=== PATIENT | female | born 1945 | race Caucasian/White ===

== ENCOUNTER 2023-02-06 01:39 | Outpatient (CLI) | payer MEDICARE, BC | END 2023-02-06 23:59 | disposition home or self-care (01) | LOC: RT 01:39 | PROVIDERS: ATTEND Internal Medicine Critical Care Medicine | DX: J44.9 Chronic obstructive pulmonary disease, unspecified (principal) | CPT/HCPCS: 94618 ==

== ENCOUNTER 2023-07-14 18:43 | Emergency (ER) | payer MEDICARE, BC ==
[~2023-07-14] VITALS: Ht 165.1 cm; Wt 77.3 kg
[2023-07-14 19:24] LABS: BASOPHILS % (AUTO) 0.1 % (0-1); EOSINOPHILS % (AUTO) 0.4 % (0-6); HEMATOCRIT 34.4 % (35.0-45.0); HEMOGLOBIN 11.8 g/dl (12.0-16.0); LYMPHOCYTES # (AUTO) 0.7 X10'3 (1.1-4.8); LYMPHOCYTES % (AUTO) 10.8 % (21-51); MEAN CORPUSCULAR HEMOGLOBIN 31.1 PG (27.0-31.0); MEAN CORPUSCULAR HGB CONC 34.3 g/dL (33.0-36.5); MEAN CORPUSCULAR VOLUME 90.7 FL (78-98); MEAN PLATELET VOLUME 9.1 FL (7.4-10.4); MONOCYTES # (AUTO) 0.5 X10'3 (0-0.9); MONOCYTES % (AUTO) 6.7 % (2-12); NEUTROPHILS # (AUTO) 5.6 X10'3 (1.8-7.7); PLATELET COUNT 137 X10'3 (140-440); RED BLOOD COUNT 3.79 X10'6 (4.20-5.60); RED CELL DISTRIBUTION WIDTH 13.6 % (11.5-14.5); WHITE BLOOD COUNT 6.9 X10'3 (4.5-11.0)
[2023-07-14 19:39] LABS: ALANINE AMINOTRANSFERASE 12 U/L (12-78); ALBUMIN 2.6 G/DL (3.4-5.0); ALBUMIN/GLOBULIN RATIO 0.9 (1.1-1.5); ALKALINE PHOSPHATASE 79 IU/L (46-116); ANION GAP 12 (8-16); ASPARTATE AMINO TRANSFERASE 20 U/L (10-37); BILIRUBIN,TOTAL 0.5 MG/DL (0.1-1.0); BLOOD UREA NITROGEN 22 MG/DL (7-18); BUN/CREATININE RATIO 12.3 (10.0-20.0); CHLORIDE 97 MMOL/L (99-107); CREATININE 1.79 MG/DL (0.40-0.90); GLUCOSE 122 MG/DL (70-104); LIPASE 12 U/L (16-77); SODIUM 131 MMOL/L (135-145); TOTAL CARBON DIOXIDE 22.3 MMOL/L (24-32); TOTAL PROTEIN 5.6 G/DL (6.4-8.2); eCRCL 24 ML/MIN; eGFR 28 ML/MIN
[2023-07-14] MEDS ORDERED: potassium Cl 20mEq/100mL bag 100 ML IV SCH (20:00)
[2023-07-14] MEDS ORDERED: normal saline 1000ml 1,000 ML IV ONE (20:00)
[2023-07-14 20:05] LABS: BILIRUBIN,URINE NEGATIVE (Neg); CLARITY,URINE CLEAR (Clear); COLOR,URINE STRAW (Yellow); GLUCOSE, URINE NEGATIVE (Neg); KETONES,URINE NEGATIVE (Neg); LEUKOCYTE ESTERASE ,URINE NEGATIVE (Neg); NITRITES, URINE NEGATIVE (Neg); OCCULT BLOOD,URINE TRACE-INTACT (Neg); PROTEIN,URINE NEGATIVE (Neg); UROBILINOGEN,URINE 0.2 E.U/dL (0.2-1.0)
[2023-07-14] MEDS ORDERED: potassium Cl 20mEq/100mL bag 100 ML IV ONE (20:05)
[2023-07-14 20:06] LABS: UA COLLECTION TYPE STRAIGHT CATH
[2023-07-14 20:13] LABS: BACTERIA,URINE NONE SEEN /HPF (Neg); MUCUS STRANDS NONE SEEN /LPF (Neg); RBC,URINE 0-2 /HPF (0-2); SQUAMOUS EPITHELIAL CELL,UR FEW /LPF (FEW); WBC,URINE 0-4 /HPF (0-4)
[2023-07-14] MEDS ORDERED: ondansetron/PF 4mg/2ml inj IV ONE (21:40)
--- NOTE | 2023-07-14 21:48 | NUR ---
PATIENT STATES, "I WANT THE DOCTOR TO KNOW EVERYTIME I STAND UP I GET SICK AND DIZZY." MD AWARE, VERBALIZES UNDERSTANDING. WARM BLANKETS PROVIDED FOR PATIENT, DENIES FURTHER NEEDS AT THIS TIME, CALL LIGHT WITHIN REACH.
--- NOTE | 2023-07-14 22:23 | NUR ---
PATIENT ENDORSES INCREASED NAUSEA, DISCUSSED WITH MD, VERBALIZED UNDERSTANDING, NEW ORDERS RECEIVED.
[2023-07-14] MEDS ORDERED: proCHLORperazine 10 MG/2 ml inj IV ONE (22:25)
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
--- NOTE | 2023-07-15 01:27 | NUR ---
WARM BLANKETS PROVIDED FOR PATIENT, DENIES FURTHER NEEDS AT THIS TIME, CALL LIGHT WITHIN REACH.
[2023-07-15] MEDS ORDERED: oxyCODONE/APAP 10/325mg tablet PO ONE (02:50)
--- NOTE | 2023-07-15 04:15 | NUR ---
PATIENT RESTING IN BED WITH EYES CLOSED, RESPIRATIONS EVEN AND UNLABORED, NO ACUTE DISTRESS NOTED AT THIS TIME, CALL LIGHT WITHIN REACH.
[2023-07-15] MEDS ORDERED: ONDA8TAB13 PO (06:09)
[2023-07-15] MEDS ORDERED: POTA-207 PO (06:09)
[2023-07-15 07:17] VITALS: TEMP 98.3
--- NOTE | 2023-07-15 08:27 | NUR ---
This RN is a personal friend of pt. Pt Eloina Ospina gives permisson for this RN to give informationt to Kera Aguila regarding d/c instructions.
--- NOTE | 2023-07-15 09:06 | NUR ---
OFFICE ADMINISTRATION INSTRUCTOR RECOMMENDS D/C TO [facility] W/HOME HEALTH REFERRAL
--- NOTE | 2023-07-15 10:06 | NUR ---
pt ready for d/c per MD. recycling program manager will refer pt for home health at [facility].
[2023-07-15 10:07] VITALS: BP 127/67; PULSE 80; RESP 14; O2SAT 96
== END 2023-07-15 10:25 | disposition home or self-care (01) ==
LOC: ER 18:43
DX: R91.1 Solitary pulmonary nodule (principal); R11.2 Nausea with vomiting, unspecified; I12.9 Hypertensive chronic kidney disease with stage 1 through stage 4 chronic kidney disease, or unspecified chronic kidney disease; N18.6 End stage renal disease; Z87.891 Personal history of nicotine dependence; Z88.8 Allergy status to other drugs, medicaments and biological substances; Z79.899 Other long term (current) drug therapy
CPT/HCPCS: 36415; 74176; 80053; 81001; 83690; 84484; 85025; 96361; 96374; 96375; 99285; J0780; J2405; J3480; J7030; C1758